=== PATIENT | female | born 1945 | race Caucasian/White ===

== ENCOUNTER → 2020-04-10 | Emergency (ER) | payer OTHER ==
[~2020-04-10] VITALS: Ht 157.5 cm; Wt 72.6 kg
[~2020-04-10] MED LIST: ASPIRIN81 M2 PO; KLOR-CON 1010 MEQ PO; LEVOTHYROXINE 0.1 MG PO; MAGOX 400400 MG PO; NORVASC5 MG PO; PROZAC10 MG PO; TRIAMTERENE-HC1 EAC3 PO; TUMS PO; VITAMIN D400 UNIT PO
[2020-04-10 14:19] VITALS: BP 136/76
--- NOTE | 2020-04-10 16:15 | EKG ---
[facility] [place] [address] ELECTROCARDIOGRAM REPORT Name: MARVIN PARTIDA Room #: PRE M..#: [id number] Admission: Attend Phys: Discharge: Date of : 49 Report #: [id number] THIS REPORT FOR: cc: FAM - Family physician unknown FAM - Family physician unknown Shahzad Silva MD [facility] ~ THIS REPORT FOR: //name// [facility] ED Test Date: 2020-04-10 Test Time: 15:53:29 Pat Name: MARVIN PARTIDA Department: Room: Gender: F Social Group Worker: eulalio : 1945 Requested By: Shahzad Silva Order Number: [id number] MD: Shahzad Silva Measurements Intervals [place] Rate: 50 P: 12 NM: 173 QRS: 22 QRSD: 104 T: 41 QT: 467 QTc: 426 Interpretive Statements Sinus bradycardia Otherwise no significant abnormality No previous ECG available for comparison Electronically Signed On 04-10-2020 16:15:14 CDT by Shahzad Silva [email or web address] <ELECTRONICALLY SIGNED> By: Shahzad Silva MD, FACC 04/10/20 1615 1553 1553 [email or web address] Silva MD, FACC /EPI
[2020-04-10 17:28] LABS: ABSOLUTE NEUTROPHILS 3.7 thou/uL (1.4-8.2); BASOPHILS 0.9 % (0.0-2.0); EOSINOPHILS 2.7 % (0.0-3.0); HEMATOCRIT 39.7 % (37.0-47.0); HEMOGLOBIN 13.6 gm/dL (12.0-15.0); LYMPHOCYTES 28.3 % (24.0-44.0); MCH 31.4 pg (26.0-34.0); MCHC 34.2 g/dL (28.0-37.0); MCV 91.9 fL (80.0-100.0); MONOCYTES 9.9 % (1.0-8.0); PLATELET COUNT 264 thou/uL (150-400); POLYS 58.2 % (36.0-66.0); RBC 4.32 mil/uL (4.20-5.00); RDW 12.8 % (10.5-14.5); WBC 6.3 thou/uL (4.0-11.0)
[2020-04-10 17:37] LABS: ANION GAP 9 mmol/L (7-16); BUN 16 mg/dL (7-18); CALCIUM 9.5 mg/dL (8.5-10.1); CHLORIDE 104 mmol/L (98-107); CO2 29 mmol/L (21-32); CREATININE 1.1 mg/dL (0.6-1.0); GLUCOSE 93 mg/dL (74-106); POTASSIUM 3.6 mmol/L (3.5-5.1); SODIUM 142 mmol/L (136-145)
[2020-04-10 17:46] LABS: TROPONIN-I <0.06 ng/mL (<0.06)
== END ==
LOC: ER 14:14
PROVIDERS: Nurse Practitioner
DX: R07.9 Chest pain, unspecified (principal); Z53.21 Procedure and treatment not carried out due to patient leaving prior to being seen by health care provider